=== PATIENT | male | born 2000 | race Caucasian/White ===

== ENCOUNTER 2019-03-19 20:44 | Emergency (ER) | payer BC ==
[~2019-03-19] VITALS: Ht 177.8 cm; Wt 75.7 kg
[2019-03-19 20:50] VITALS: Ht 177.8 cm; Wt 75.7 kg
[2019-03-19 21:52] VITALS: BP 129/77
== END 2019-03-19 21:45 | disposition home or self-care (01) ==
LOC: ED 20:44
DX: L03.116 Cellulitis of left lower limb (principal)
CPT/HCPCS: J7512

== ENCOUNTER 2019-03-22 19:54 | Emergency (ER) | payer BC ==
[~2019-03-22] VITALS: Ht 177.8 cm; Wt 74.8 kg
[2019-03-22 20:10] VITALS: Ht 177.8 cm; Wt 74.8 kg
[2019-03-22 20:48] VITALS: BP 132/77
== END 2019-03-22 20:48 | disposition home or self-care (01) ==
LOC: ED 19:54
DX: L03.317 Cellulitis of buttock (principal); R03.0 Elevated blood-pressure reading, without diagnosis of hypertension

== ENCOUNTER 2019-07-23 17:49 | Emergency (ER) | payer BC, MEDICAID ==
[~2019-07-23] VITALS: Ht 177.8 cm; Wt 72.6 kg
[2019-07-23 17:53] VITALS: Ht 177.8 cm; Wt 72.6 kg
[2019-07-23 18:55] LABS: UA SPECIFIC GRAVITY 1.025 (1.005-1.035); microscopic required? YES; urine erythrocyte NEGATIVE (NEGATIVE)
[2019-07-23 20:16] VITALS: BP 118/59
== END 2019-07-23 19:01 | disposition home or self-care (01) ==
LOC: ED 17:49
PROVIDERS: Emergency Medicine
DX: N50.812 Left testicular pain (principal); N50.3 Cyst of epididymis; Z90.89 Acquired absence of other organs
CPT/HCPCS: 87491; 87591; Q0092